=== PATIENT | male | born 1980 | race African-American/Black ===

== ENCOUNTER 2016-08-02 08:21 | Emergency (ER) | payer SELFPAY ==
[~2016-08-02] VITALS: Ht 175.3 cm; Wt 70.1 kg
[2016-08-02] MEDS ORDERED: KETOROLAC TROMETHAMINE 60 MG/2 ML SYRINGE. IM ONE (09:00)
[2016-08-02] MEDS ORDERED: IBUP-1060 PO (09:13)
[2016-08-02] MEDS ORDERED: CEPH-264 PO (09:13)
--- NOTE | 2016-08-02 09:13 | PHYS DOC ---
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 He denies any specific injury. He has not taken any medications for his symptoms. He rates his pain an 8/10 on the pain scale. Review of Systems Review of Systems Constitutional: Denies fever or chills [] Eyes: Denies change in visual acuity, redness, or eye pain [] HENT: Denies nasal congestion or sore throat [] Respiratory: Denies cough or shortness of breath [] Cardiovascular: No additional information not addressed in HPI [] GI: Denies abdominal pain, nausea, vomiting, bloody stools or diarrhea [] : Denies dysuria or hematuria [] Musculoskeletal: Denies back pain, has joint pain [] Integument: Denies rash or skin lesions [] Neurologic: Denies headache, focal weakness or sensory changes [] Endocrine: Denies polyuria or polydipsia [] Current Medications Current Medications Current Medications Medications (Trade) Dose Ordered Sig/[facility] Start Time Stop Time Status Last Admin Dose Admin Ketorolac Tromethamine (Toradol Im) 60 mg 1X ONCE 08/02/16 09:00 08/02/16 09:01 UNV Allergies Allergies Allergies Coded Allergies Type Severity Reaction Last Updated Verified aspirin Allergy Intermediate rash 08/02/16 Yes Physical Exam Physical Exam Constitutional: Well developed, well nourished, no acute distress, non-toxic appearance. [] HENT: Normocephalic, atraumatic, bilateral external ears normal, oropharynx moist, no oral exudates, nose normal. [] Eyes: PERRLA, EOMI, conjunctiva normal, no discharge. [] Neck: Normal range of motion, no tenderness, supple, no stridor. [] Cardiovascular:Heart rate regular rhythm, no murmur [] Lungs & Thorax: Bilateral breath sounds clear to auscultation [] Abdomen: Bowel sounds normal, soft, no tenderness, no masses, no pulsatile masses. [] Skin: Warm, dry, no erythema, no rash. [] Back: No tenderness, no CVA tenderness. [] Extremities: Moderate tenderness and swelling to the dorsum of the right forearm with some palpable warmth seen but no obvious abscess formation, no cyanosis, no clubbing, ROM intact, no edema. [] Neurologic: Alert and oriented X 3, normal motor function, normal sensory function, no focal deficits noted. [] Psychologic: Affect normal, judgement normal, mood normal. [] Current Patient Data Vital Signs Vital Signs Date Time Temp Pulse Resp B/P Pulse Ox O2 Delivery O2 Flow Rate FiO2 08/02/16 08:33 98.6 82 16 98 Room Air 98.6 EKG EKG [] Radiology/Procedures Radiology/Procedures [] Course & Med Decision Making Course & Med Decision Making Pertinent Labs and Imaging studies reviewed. (See chart for details) This 36-year-old male who's had some mild swelling to the dorsum of the right forearm with a small area of warmth but no obvious abscess or redness is seen. There could be a mild cellulitic component to his symptoms. I did order a plain view of his right forearm which was negative. Patient was given an IM injection of Toradol with improvement. He'll be discharged with a course of Keflex and Motrin and told to ice extremity and avoid any repetitive use. I counseled him not to continue his current work activities for the next several days and to follow closely with his primary care doctor for symptoms persist. Dragon Disclaimer Dragon Disclaimer This electronic medical record was generated, in whole or in part, using a voice recognition dictation system. Departure Departure Impression: Primary Impression: Forearm swelling Disposition: 01 HOME, SELF-CARE Admitting Physician: Other Condition: STABLE Patient Instructions: Joint Sprain Additional Instructions: Please take your medications as prescribed. Avoid any repetitive use of your right arm and keep your extremity iced and elevated. Follow up with your primary doctor in the next 2-3 days. Scripts Ibuprofen 800 Mg Bmddgr770 Mg PO PRN Q6HRS PRN INFLAMMATION #20 TAB Prov:GIOVANI SAHNI DO 08/02/16 Cephalexin (Keflex)500 Mg Capsule1 Cap PO TID #30 CAP Prov:GIOVANI SAHNI DO 08/02/16 GIOVANI SAHNI DO Aug 02, 2016 09:13
--- NOTE | 2016-08-02 09:20 | RAD ---
Right forearm, 2 views, 08/02/2016: History: Forearm pain and swelling No fracture or destructive bony lesion is seen. There is a tendinous calcification at the triceps tendon insertion site on the olecranon process. Mild subcutaneous edema is noted in the distal forearm. No radiopaque foreign body is evident in the soft tissues. IMPRESSION: No acute bony abnormality is detected.
[2016-08-02 09:40] VITALS: BP 130/82
== END 2016-08-02 09:42 | disposition home or self-care (01) ==
LOC: ER 08:21
DX: M79.89 Other specified soft tissue disorders (principal); F12.10 Cannabis abuse, uncomplicated; F17.210 Nicotine dependence, cigarettes, uncomplicated; Z88.6 Allergy status to analgesic agent; Z87.442 Personal history of urinary calculi
CPT/HCPCS: 73090; 96372; 99285; J1885

== ENCOUNTER 2017-10-08 19:05 | Emergency (ER) | payer SELFPAY | END 2017-10-08 21:26 | disposition home or self-care (01) | LOC: ER 19:05 | DX: S93.602A Unspecified sprain of left foot, initial encounter (principal); Z88.6 Allergy status to analgesic agent; X50.1XXA Overexertion from prolonged static or awkward postures, initial encounter; Y93.89 Activity, other specified; Y99.8 Other external cause status; Y92.89 Other specified places as the place of occurrence of the external cause | CPT/HCPCS: 73630; 99284 ==

== ENCOUNTER 2018-07-26 14:43 | Emergency (ER) | payer SELFPAY ==
[~2018-07-26] VITALS: Ht 170.2 cm; Wt 72.6 kg
[~2018-07-26 14:43] MED LIST: CEPH-264 PO; IBUP-1060 PO
--- NOTE | 2018-07-26 14:56 | PHYS DOC ---
Past Medical History Past Medical History: No Pertinent History Additional Past Medical Histor: calcium deficiency Past Surgical History: No Surgical History Alcohol Use: None Social History Narrative: PCP Adult General Chief Complaint Chief Complaint: DRUG ABUSE HPI HPI Patient is a 38 year old male who presents with altered mental status. Patient is reported to have been using PCP when he knocked on the neighbors door. Patient had decreased mental status for EMS. EMS obtained a blood sugar in the 1 teens. Patient was initially quiet but became violently agitated while in route but is doing better just prior to arrival. History is limited from the patient due to his altered mental status.[] Review of Systems Review of Systems Unable to obtain due to altered mental status [] All other systems were reviewed and found to be within normal limits, except as documented in this note. Current Medications Current Medications Current Medications Medications (Trade) Dose Ordered Sig/[facility] Start Time Stop Time Status Last Admin Dose Admin Diphenhydramine HCl (Benadryl) 50 mg STK-MED ONCE 07/26/18 15:27 07/26/18 15:28 DC Haloperidol Lactate (Haldol Inj) 5 mg PRN TID PRN 07/26/18 15:00 07/26/18 15:25 5 MG Sodium Chloride 1,000 ml @ 1,000 mls/hr 1X ONCE 07/26/18 16:15 07/26/18 17:14 Allergies Allergies Allergies Coded Allergies Type Severity Reaction Last Updated Verified aspirin Allergy Intermediate rash 08/02/16 Yes Physical Exam Physical Exam Constitutional: Well developed, well nourished, no acute distress, non-toxic appearance. [] HENT: Normocephalic, atraumatic, bilateral external ears normal, oropharynx moist, no oral exudates, nose normal. [] Eyes: PERRLA, EOMI, conjunctiva normal, no discharge. [] Neck: Normal range of motion, no tenderness, supple, no stridor. [] Cardiovascular:Heart rate regular rhythm, no murmur [] Lungs & Thorax: Bilateral breath sounds clear to auscultation [] Abdomen: Bowel sounds normal, soft, no tenderness, no masses, no pulsatile masses. [] Skin: Warm, dry, no erythema, no rash. [] Back: No tenderness, no CVA tenderness. [] Extremities: No tenderness, no cyanosis, no clubbing, ROM intact, no edema. [] Neurologic: Alert, GCS10 - E4, V1 M5. [] Psychologic: Unable to assess. [] Current Patient Data Vital Signs Vital Signs Date Time Temp Pulse Resp B/P (MAP) Pulse Ox O2 Delivery O2 Flow Rate FiO2 07/26/18 16:21 96 16 159/89 (112) 96 Room Air 07/26/18 14:46 97.4 97.4 Lab Values Laboratory Tests Test 07/26/18 15:05 White Blood Count 9.7 x10^3/uL (4.0-11.0) Red Blood Count 5.12 x10^6/uL (4.30-5.70) Hemoglobin 13.1 g/dL (13.0-17.5) Hematocrit 39.7 % (39.0-53.0) Mean Corpuscular Volume 78 fL (79-100) L Mean Corpuscular Hemoglobin 26 pg (25-35) Mean Corpuscular Hemoglobin Concent 33 g/dL (31-37) Red Cell Distribution Width 15.6 % (11.5-14.5) H Platelet Count 283 x10^3/uL (140-400) Neutrophils (%) (Auto) 75 % (31-73) H Lymphocytes (%) (Auto) 14 % (24-48) L Monocytes (%) (Auto) 10 % (0-9) H Eosinophils (%) (Auto) 0 % (0-3) Basophils (%) (Auto) 1 % (0-3) Neutrophils # (Auto) 7.3 x10^3uL (1.8-7.7) Lymphocytes # (Auto) 1.3 x10^3/uL (1.0-4.8) Monocytes # (Auto) 1.0 x10^3/uL (0.0-1.1) Eosinophils # (Auto) 0.0 x10^3/uL (0.0-0.7) Basophils # (Auto) 0.1 x10^3/uL (0.0-0.2) Prothrombin Time 14.1 SEC (11.7-14.0) H Prothrombin Time INR 1.1 (0.8-1.1) Sodium Level 141 mmol/L (136-145) Potassium Level 3.8 mmol/L (3.5-5.1) Chloride Level 99 mmol/L (98-107) Carbon Dioxide Level 23 mmol/L (21-32) Anion Gap 19 (6-14) H Blood Urea Nitrogen 16 mg/dL (8-26) Creatinine 1.7 mg/dL (0.7-1.3) H Estimated GFR (Cockcroft-Gault) 54.3 BUN/Creatinine Ratio 9 (6-20) Glucose Level 155 mg/dL (70-99) H Calcium Level 9.7 mg/dL (8.5-10.1) Magnesium Level 2.2 mg/dL (1.8-2.4) Total Bilirubin 1.0 mg/dL (0.2-1.0) Aspartate Amino Transferase (AST) 29 U/L (15-37) Alanine Aminotransferase (ALT) 18 U/L (16-63) Alkaline Phosphatase 84 U/L (46-116) Ammonia 40 mcmol/L (11-34) H Total Protein 7.8 g/dL (6.4-8.2) Albumin 4.4 g/dL (3.4-5.0) Albumin/Globulin Ratio 1.3 (1.0-1.7) Laboratory Tests 07/26/18 15:05 Laboratory Tests 07/26/18 15:05 EKG EKG EKG shows a sinus tachycardia at 107 bpm, normal axis, QTC 438 ms, no ST elevations, turbid by me at 1506[] Radiology/Procedures Radiology/Procedures [] Course & Med Decision Making Course & Med Decision Making Pertinent Labs and Imaging studies reviewed. (See chart for details) ED course: Patient arrived by EMS, was transferred from their cot 2R bed without any difficulty. He tolerated exam well. On being taken to CT scan due to his altered mental status he started to become agitated. He was given 5 mg of Haldol IM at approximately 1525 here. He became more agitated and violent. Shellie schaefer was called. He lost his IV access while restraining him. Additional 50 mg of diphenhydramine was administered via a second line that was established. Patient called him down after the medication. At approximately 1700 he was still awake was answering appropriately.'s discharged to to his brother. Medical decision making. Patient appears to have used CPAP by history. No other toxidrome is noted. [] Dragon Disclaimer Dragon Disclaimer This electronic medical record was generated, in whole or in part, using a voice recognition dictation system. Departure Departure Impression: Primary Impression: Drug abuse Disposition: 01 HOME, SELF-CARE Condition: IMPROVED Referrals: NO PCP (PCP) Patient Instructions: Drug Abuse and Addiction-[facility] Additional Instructions: Do not use any drugs or medications that are not prescribed for you, they may kill you. Your regular doctor in 2 days. If you do not have regular doctor a list of local clinics will be provided for you, follow-up with one of them in 2 days. Return to the ER if difficulty breathing or any other concerns. YESSENIA COLLINS DO Jul 26, 2018 14:56
[2018-07-26] MEDS ORDERED: HALOPERIDOL LACTATE 5 MG/ML VIAL. IM PRN (15:00)
[2018-07-26 15:16] LABS: BASO # 0.1 x10^3/uL (0.0-0.2); BASO % 1 % (0-3); EOS % 0 % (0-3); HEMATOCRIT 39.7 % (39.0-53.0); HEMOGLOBIN 13.1 g/dL (13.0-17.5); LYMPH # 1.3 x10^3/uL (1.0-4.8); LYMPH % 14 % (24-48); MEAN CORPUSCULAR HEMOGLOBIN 26 pg (25-35); MEAN CORPUSCULAR HGB CONC 33 g/dL (31-37); MEAN CORPUSCULAR VOLUME 78 fL (79-100); MONO % 10 % (0-9); NEUT # 7.3 x10^3uL (1.8-7.7); NEUT % 75 % (31-73); PLATELET COUNT 283 x10^3/uL (140-400); RED BLOOD COUNT 5.12 x10^6/uL (4.30-5.70); RED CELL DISTRIBUTION WIDTH 15.6 % (11.5-14.5); WHITE BLOOD COUNT 9.7 x10^3/uL (4.0-11.0)
[2018-07-26 15:25] LABS: CALCIUM 9.7 mg/dL (8.5-10.1); CREATININE 1.7 mg/dL (0.7-1.3); GFR 54.3; POTASSIUM 3.8 mmol/L (3.5-5.1); PROTHROMBIN TIME PATIENT 14.1 SEC (11.7-14.0)
[2018-07-26] MEDS ORDERED: diphenhydrAMINE 50 MG/ML VIAL ONE (15:27)
[2018-07-26] MEDS ORDERED: diphenhydrAMINE 50 MG/ML VIAL IVP ONE (15:30)
[2018-07-26 15:31] LABS: ALBUMIN 4.4 g/dL (3.4-5.0); ALBUMIN/GLOBULIN RATIO 1.3 (1.0-1.7); MAGNESIUM 2.2 mg/dL (1.8-2.4); TOTAL PROTEIN 7.8 g/dL (6.4-8.2)
[2018-07-26] MEDS ORDERED: IV NORMAL SALINE 1000ML BAG 1,000 ML IV ONE (16:15)
[2018-07-26 16:21] VITALS: BP 159/89
--- NOTE | 2018-07-26 20:09 | RAD ---
AP portable chest 07/26/2018. Reason for exam: Altered mental status. There is questionable rectal cardiac opacity in the left lower lobe, although there are some overlying leads. The lungs otherwise appear clear and no pleural fluid is seen. Heart size is normal. IMPRESSION: Questionable left lower lobe opacity. Electronically signed by: Jai Gee Jr., MD (07/26/2018 8:05 PM) [facility]
--- NOTE | 2018-07-27 07:23 | EKG ---
[facility] [address] [place] [address] Test Date: 2018-07-26 Test Time: 15:02:47 Pat Name: GIRISH PARKER Department: Room: Gender: M [employer]: : 1980 Requested By: YESSENIA COLLINS Order Number: [id number] Reading MD: Yaw Davila MD Measurements Intervals [place] Rate: 107 P: 42 [place]: 112 QRS: 81 QRSD: 94 T: 10 QT: 324 QTc: 438 Interpretive Statements SINUS TACHYCARDIA PROBABLE LVH NON-SPECIFIC ST/T CHANGES Electronically Signed On 07-27-2018 10:58:45 MEDICATION ADMINISTRATION PROFESSIONAL by Yaw Davila MD
== END 2018-07-26 17:12 | disposition home or self-care (01) ==
LOC: ER 14:43
DX: F16.20 Hallucinogen dependence, uncomplicated (principal); R41.82 Altered mental status, unspecified; R00.0 Tachycardia, unspecified; Z88.6 Allergy status to analgesic agent
CPT/HCPCS: 36415; 71045; 80053; 82140; 83735; 85025; 85610; 93005; 96372; 96374; 99284; J1200; J1630

== ENCOUNTER 2019-04-16 16:03 | Emergency (ER) | payer SELFPAY ==
[~2019-04-16] VITALS: Ht 185.4 cm; Wt 59.0 kg
[2019-04-16] MEDS ORDERED: IV NORMAL SALINE 1000ML BAG 1,000 ML IV SCH (16:13)
--- NOTE | 2019-04-16 16:19 | PHYS DOC ---
Past Medical History Past Medical History: No Pertinent History Additional Past Medical Histor: calcium deficiency Past Surgical History: No Surgical History Alcohol Use: None Adult General Chief Complaint Chief Complaint: drug abuse HPI HPI Patient is a 38 year old patient with history of substance abuse who presents via EMS with complaining of agitation. Patient was wondering in his backyard and was agitated and neighbors called 911. EMS reported that they found PCP in his pocket and patient was not alert and oriented but became alert and oriented at time of arrival to ER. Patient is a poor historian and and states he doesn't know why he is here and denies using PCP and complaining of hurting all over as a chronic problem. Patient denies suicidal and homicidal ideation and hallucination,using drugs and alcohol. Review of Systems Review of Systems Constitutional: Denies fever or chills [] Eyes: Denies change in visual acuity, redness, or eye pain [] HENT: Denies nasal congestion or sore throat [] Respiratory: Denies cough or shortness of breath [] Cardiovascular: No additional information not addressed in HPI [] GI: Denies abdominal pain, nausea, vomiting, bloody stools or diarrhea [] : Denies dysuria or hematuria [] Musculoskeletal: Denies back pain or joint pain, complaining of hurting all over [] Integument: Denies rash or skin lesions [] Neurologic: Denies headache, focal weakness or sensory changes [] Endocrine: Denies polyuria or polydipsia [] All other systems were reviewed and found to be within normal limits, except as documented in this note. Current Medications Current Medications Current Medications Medications (Trade) Dose Ordered Sig/[facility] Start Time Stop Time Status Last Admin Dose Admin Sodium Chloride 1,000 ml @ 1,000 mls/hr Q1H 04/16/19 16:13 04/16/19 17:12 DC 04/16/19 16:13 1,000 MLS/HR Allergies Allergies Allergies Coded Allergies Type Severity Reaction Last Updated Verified aspirin Allergy Intermediate rash 08/02/16 Yes Physical Exam Physical Exam Constitutional: Well nourished, mild distress, non-toxic appearance. [] HENT: Normocephalic, atraumatic, oropharynx moist, no oral exudates, nose normal. [] Eyes: PERRLA, EOMI, conjunctiva normal, no discharge. [] Neck: Normal range of motion, no tenderness, supple, no stridor. [] Cardiovascular:Heart rate regular rhythm, no murmur [] Lungs & Thorax: Bilateral breath sounds clear to auscultation [] Abdomen: Bowel sounds normal, soft, no tenderness, no masses, no pulsatile masses. [] Skin: Warm, dry, no erythema, no rash. [] Back: No tenderness, no CVA tenderness. [] Extremities: No tenderness, no cyanosis, no clubbing, ROM intact, no edema. [] Neurologic: Alert and oriented X 3 but somnolent, normal motor function, normal sensory function, no focal deficits noted. [] Psychologic: Affect anxious, mood normal. [] Current Patient Data Vital Signs Vital Signs Date Time Temp Pulse Resp B/P (MAP) Pulse Ox O2 Delivery O2 Flow Rate FiO2 04/16/19 17:30 100 16 154/82 (106) 96 04/16/19 16:03 98.8 Room Air 98.8 Lab Values Laboratory Tests Test 04/16/19 16:18 White Blood Count 8.4 x10^3/uL (4.0-11.0) Red Blood Count 4.68 x10^6/uL (4.30-5.70) Hemoglobin 12.3 g/dL (13.0-17.5) L Hematocrit 36.7 % (39.0-53.0) L Mean Corpuscular Volume 78 fL (79-100) L Mean Corpuscular Hemoglobin 26 pg (25-35) Mean Corpuscular Hemoglobin Concent 33 g/dL (31-37) Red Cell Distribution Width 15.8 % (11.5-14.5) H Platelet Count 166 x10^3/uL (140-400) Neutrophils (%) (Auto) 59 % (31-73) Lymphocytes (%) (Auto) 30 % (24-48) Monocytes (%) (Auto) 9 % (0-9) Eosinophils (%) (Auto) 2 % (0-3) Basophils (%) (Auto) 1 % (0-3) Neutrophils # (Auto) 5.0 x10^3/uL (1.8-7.7) Lymphocytes # (Auto) 2.5 x10^3/uL (1.0-4.8) Monocytes # (Auto) 0.7 x10^3/uL (0.0-1.1) Eosinophils # (Auto) 0.1 x10^3/uL (0.0-0.7) Basophils # (Auto) 0.1 x10^3/uL (0.0-0.2) Sodium Level 144 mmol/L (136-145) Potassium Level 4.3 mmol/L (3.5-5.1) Chloride Level 106 mmol/L (98-107) Carbon Dioxide Level 26 mmol/L (21-32) Anion Gap 12 (6-14) Blood Urea Nitrogen 14 mg/dL (8-26) Creatinine 1.3 mg/dL (0.7-1.3) Estimated GFR (Cockcroft-Gault) 74.0 Glucose Level 180 mg/dL (70-99) H Calcium Level 8.9 mg/dL (8.5-10.1) Magnesium Level 1.9 mg/dL (1.8-2.4) Total Bilirubin 0.2 mg/dL (0.2-1.0) Direct Bilirubin 0.1 mg/dL (0.0-0.2) Aspartate Amino Transferase (AST) 24 U/L (15-37) Alanine Aminotransferase (ALT) 43 U/L (16-63) Alkaline Phosphatase 125 U/L (46-116) H Total Protein 7.0 g/dL (6.4-8.2) Albumin 3.9 g/dL (3.4-5.0) Ethyl Alcohol Level < 10 mg/dL (0-10) Laboratory Tests 04/16/19 16:18 Laboratory Tests 04/16/19 16:18 EKG EKG [] Radiology/Procedures Radiology/Procedures [] Course & Med Decision Making Course & Med Decision Making Pertinent Labs reviewed. (See chart for details) Evaluation of patient in ER showed 38-year-old male patient brought in by EMS because of agitation and altered level of consciousness. Patient was alert and oriented to arrival to ER but was somnolent that gradually became better and become alert and oriented without any problem. Patient tolerated oral intake and ambulated without problem. Labs was unremarkable. Patient refused to give urine sample. Plan discharge patient home with diagnose of substance abuse. Dragon Disclaimer Dragon Disclaimer This electronic medical record was generated, in whole or in part, using a voice recognition dictation system. Departure Departure Impression: Primary Impression: Substance abuse Disposition: HOME, SELF-CARE (at 1710) Condition: IMPROVED Referrals: NO PCP (PCP) Patient Instructions: Substance Abuse-Brief Additional Instructions: Drink plenty of liquids Follow-up with your primary care physician in 3-5 days Return to ER if not getting better TONY WARREN MD Apr 16, 2019 16:19
[2019-04-16 16:25] LABS: BASO # 0.1 x10^3/uL (0.0-0.2); BASO % 1 % (0-3); EOS # 0.1 x10^3/uL (0.0-0.7); EOS % 2 % (0-3); HEMATOCRIT 36.7 % (39.0-53.0); HEMOGLOBIN 12.3 g/dL (13.0-17.5); LYMPH # 2.5 x10^3/uL (1.0-4.8); LYMPH % 30 % (24-48); MEAN CORPUSCULAR HEMOGLOBIN 26 pg (25-35); MEAN CORPUSCULAR HGB CONC 33 g/dL (31-37); MEAN CORPUSCULAR VOLUME 78 fL (79-100); MONO # 0.7 x10^3/uL (0.0-1.1); MONO % 9 % (0-9); NEUT % 59 % (31-73); PLATELET COUNT 166 x10^3/uL (140-400); RED BLOOD COUNT 4.68 x10^6/uL (4.30-5.70); RED CELL DISTRIBUTION WIDTH 15.8 % (11.5-14.5); WHITE BLOOD COUNT 8.4 x10^3/uL (4.0-11.0)
[2019-04-16 16:45] LABS: CALCIUM 8.9 mg/dL (8.5-10.1); CREATININE 1.3 mg/dL (0.7-1.3); POTASSIUM 4.3 mmol/L (3.5-5.1)
[2019-04-16 16:53] LABS: ALBUMIN 3.9 g/dL (3.4-5.0); DIRECT BILIRUBIN 0.1 mg/dL (0.0-0.2); MAGNESIUM 1.9 mg/dL (1.8-2.4); TOTAL BILIRUBIN 0.2 mg/dL (0.2-1.0)
[2019-04-16 17:30] VITALS: BP 154/82
== END 2019-04-16 17:30 | disposition home or self-care (01) ==
LOC: ER 16:03
DX: F16.10 Hallucinogen abuse, uncomplicated (principal); R45.1 Restlessness and agitation; Z88.6 Allergy status to analgesic agent
CPT/HCPCS: 36415; 80048; 80076; 83735; 85025; 99284; G0480; J7030

== ENCOUNTER 2019-12-03 00:37 | Emergency (ER) | payer SELFPAY ==
[~2019-12-03] VITALS: Ht 182.9 cm; Wt 72.7 kg
[2019-12-03 02:17] LABS: BASO % 0 % (0-3); EOS % 0 % (0-3); HEMATOCRIT 42.6 % (39.0-53.0); HEMOGLOBIN 13.8 g/dL (13.0-17.5); LYMPH # 1.8 x10^3/uL (1.0-4.8); LYMPH % 11 % (24-48); MEAN CORPUSCULAR HEMOGLOBIN 26 pg (25-35); MEAN CORPUSCULAR HGB CONC 32 g/dL (31-37); MEAN CORPUSCULAR VOLUME 80 fL (79-100); MONO # 1.3 x10^3/uL (0.0-1.1); MONO % 8 % (0-9); NEUT # 12.5 x10^3/uL (1.8-7.7); NEUT % 80 % (31-73); PLATELET COUNT 270 x10^3/uL (140-400); RED BLOOD COUNT 5.35 x10^6/uL (4.30-5.70); WHITE BLOOD COUNT 15.6 x10^3/uL (4.0-11.0)
[2019-12-03 02:26] LABS: CALCIUM 9.3 mg/dL (8.5-10.1); CREATININE 1.4 mg/dL (0.7-1.3); GFR 67.6; POTASSIUM 3.7 mmol/L (3.5-5.1)
[2019-12-03 02:32] LABS: ALBUMIN 4.3 g/dL (3.4-5.0); ALBUMIN/GLOBULIN RATIO 1.2 (1.0-1.7); TOTAL BILIRUBIN 0.5 mg/dL (0.2-1.0)
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
[2019-12-03] MEDS ORDERED: MORPHINE SULFATE 4 MG/ML VIAL. IV ONE (02:45)
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
[2019-12-03 03:58] LABS: BARBITURATES NEG (NEG); BENZODIAZEPINES POS (NEG); CANNABINOIDS POS (NEG); COCAINE NEG (NEG); METHADONE NEG (NEG); OPIATES NEG (NEG); PHENCYCLIDINE POS (NEG)
[2019-12-03 04:01] LABS: AMPHETAMINE/METHAMPHETAMINE NEG (NEG)
[2019-12-03 04:42] VITALS: BP 142/92
== END 2019-12-03 05:03 | disposition short-term general hospital (02) ==
LOC: ER 00:37
DX: S02.609A Fracture of mandible, unspecified, initial encounter for closed fracture (principal); M54.2 Cervicalgia; R51 Headache; F17.200 Nicotine dependence, unspecified, uncomplicated; Z88.6 Allergy status to analgesic agent; Y08.89XA Assault by other specified means, initial encounter; Y93.89 Activity, other specified; Y92.89 Other specified places as the place of occurrence of the external cause; Y99.8 Other external cause status
CPT/HCPCS: 36415; 70450; 70486; 72125; 80053; 80307; 85025; 96374; 99285; G0480; J2270